=== PATIENT | male | born 1940 | race Asian ===

== ENCOUNTER 2018-11-21 13:35 | Observation (INO) | payer OTHER ==
[~2018-11-21] VITALS: Ht 165.1 cm; Wt 65.2 kg
[~2018-11-21 13:35] MED LIST: ASPI-535; ASPI-903 PO; BENA20TA4; EMPA10TA PO; LOSA100T15 PO; LOSA50TA14 PO; OXYC-279 PO; SIMV40TA3; SIMV40TA3 PO
[2018-11-21] MEDS ORDERED: SOD CHLORIDE 0.9% 1,000 ML IV STA (14:09)
[2018-11-21] MEDS ORDERED: POTASSIUM CHLORIDE 100 ML IVPB STA (15:26)
[2018-11-21] MEDS ORDERED: ACETAMINOPHEN 325 MG TAB PO PRN (16:00)
[2018-11-21] MEDS ORDERED: ONDANSETRON 4 MG INJ IV PRN ×2 (16:00→18:30)
[2018-11-21] MEDS ORDERED: ZOLPIDEM 5 MG TAB PO PRN (18:30)
[2018-11-21 19:35] VITALS: Ht 165.1 cm; Wt 65.2 kg
[2018-11-21 20:00] VITALS: BP 132/79; PULSE 92; RESP 20
[2018-11-21] MEDS: POTASSIUM CHLORIDE (SR) 20 MEQ TAB PO SCH (20:41)
[2018-11-21] MEDS: POTASSIUM CHLORIDE 40 MEQ in SOD CHLORIDE 0.9% 1,000 ML IV SCH (20:41)
[2018-11-21] MEDS ORDERED: ATORVASTATIN 20 MG TAB PO SCH (21:00)
[2018-11-21] MEDS: INSULIN ASPART [NOVOLOG] 3 ML PEN SC SCH (21:00)
[2018-11-22] VITALS: BP 115/71; PULSE 66; RESP 19
[2018-11-22 04:00] VITALS: BP 132/74; PULSE 60; RESP 20
[2018-11-22] MEDS: POTASSIUM CHLORIDE 40 MEQ in SOD CHLORIDE 0.9% 1,000 ML IV SCH (07:00)
[2018-11-22 07:14] VITALS: BP 120/74; PULSE 73; RESP 17
[2018-11-22] MEDS: INSULIN ASPART [NOVOLOG] 3 ML PEN SC SCH ×2 (07:59→12:08)
[2018-11-22] MEDS: POTASSIUM CHLORIDE (SR) 20 MEQ TAB PO SCH (08:15)
[2018-11-22] MEDS ORDERED: LOSARTAN 50 MG TAB PO SCH (09:00)
[2018-11-22] MEDS ORDERED: ASPIRIN 81 MG TAB PO SCH (09:00)
[2018-11-22 11:34] VITALS: BP 107/58; PULSE 78; RESP 18
[2018-11-22 15:28] VITALS: BP 112/63; PULSE 86; RESP 18
== END 2018-11-22 17:23 | disposition home or self-care (01) ==
LOC: E/R 13:35 → 6WM 18:14
PROVIDERS: ADMIT Internal Medicine; ATTEND Internal Medicine
DX: R55 Syncope and collapse (principal); E87.6 Hypokalemia; E87.5 Hyperkalemia; I12.9 Hypertensive chronic kidney disease with stage 1 through stage 4 chronic kidney disease, or unspecified chronic kidney disease; E11.22 Type 2 diabetes mellitus with diabetic chronic kidney disease; N18.3 Chronic kidney disease, stage 3 (moderate); Z79.82 Long term (current) use of aspirin
CPT/HCPCS: 80048; 82962; 84484; 85025; 93005; G0378; J1815; J3480; J7030; 36415

== ENCOUNTER 2018-11-25 07:30 | Emergency (ER) | payer OTHER ==
[~2018-11-25] VITALS: Ht 167.6 cm; Wt 65.0 kg
[~2018-11-25 07:30] MED LIST changes: -ASPI-535; -BENA20TA4; -LOSA100T15 PO; -SIMV40TA3
[2018-11-25 07:41] VITALS: Ht 167.6 cm; Wt 65.0 kg
[2018-11-25] MEDS ORDERED: LACTATED RINGER'S 1,000 ML IV STA (07:48)
[2018-11-25] MEDS ORDERED: KETOROLAC 15 MG INJ IV STA (07:48)
[2018-11-25 10:51] VITALS: BP 132/74; PULSE 85; RESP 16
== END 2018-11-25 10:56 | disposition home or self-care (01) ==
LOC: E/R 07:30
DX: M25.461 Effusion, right knee (principal); M25.462 Effusion, left knee; M10.061 Idiopathic gout, right knee; I12.9 Hypertensive chronic kidney disease with stage 1 through stage 4 chronic kidney disease, or unspecified chronic kidney disease; N18.3 Chronic kidney disease, stage 3 (moderate); E11.22 Type 2 diabetes mellitus with diabetic chronic kidney disease; Z79.82 Long term (current) use of aspirin
CPT/HCPCS: 36415; 80053; 83690; 85025; 96374; 99284; J1885; J7120